=== PATIENT | female | born 1975 | race Caucasian/White ===

== ENCOUNTER 2022-01-08 12:29 | Observation (INO) ==
[2022-01-08 14:06] VITALS: BMI 34.7
[2022-01-08] MEDS ORDERED: ZOFRAN INJ 4 MG VIAL IVP PRN (18:32)
[2022-01-08] MEDS ORDERED: NS 100 ML IV 100 ML ONE (21:26)
[2022-01-08] MEDS: D5 1/2 NS 1,000 ML 1,000 ML IV SCH (21:30)
[2022-01-08] MEDS: ZESTRIL TAB 10 MG PO SCH (21:30)
[2022-01-08] MEDS: DILAUDID INJ IVP PRN (21:40)
[2022-01-08] MEDS: ANCEF VIAL 1 GRAM IV SCH (21:45)
[2022-01-09] MEDS ORDERED: NS 100 ML IV 100 ML ONE ×2 (04:37→14:01)
[2022-01-09] MEDS: ANCEF VIAL 1 GRAM IV SCH ×3 (05:30→21:22)
[2022-01-09 06:40] LABS: BASOPHILS % (AUTO) 0.5 % (0.2-1.0); EOSINOPHILS # (AUTO) 0.2 x10^3/uL (0.0-0.2); EOSINOPHILS % (AUTO) 3.7 % (0.9-2.9); HEMATOCRIT 38.1 % (36.0-47.0); LYMPHOCYTES # (AUTO) 1.7 X10^3/uL (1.3-2.9); LYMPHOCYTES % (AUTO) 32.7 % (21.0-51.0); MEAN CORPUSCULAR HEMOGLOBIN 27.6 pg (27.0-34.0); MEAN CORPUSCULAR HGB CONC 34.2 g/dL (33.0-35.0); MEAN CORPUSCULAR VOLUME 80.7 fL (80.0-100.0); MEAN PLATELET VOLUME 7.5 fL (7.4-11.0); MONOCYTES # (AUTO) 0.3 x10^3/uL (0.3-0.8); MONOCYTES % (AUTO) 5.5 % (0.0-13.0); NEUTROPHILS # (AUTO) 3.1 x10^3/uL (2.2-4.8); NEUTROPHILS % (AUTO) 57.6 % (42.0-75.0); RED BLOOD COUNT 4.72 X10^6/uL (3.5-5.4); RED CELL DISTRIBUTION WIDTH 13.3 % (11.6-16.5); WHITE BLOOD COUNT 5.3 X10^3/uL (3.6-10.0)
[2022-01-09 06:50] LABS: ALANINE AMINOTRANSFERASE 18 Units/L (12-78); ALBUMIN 3.4 g/dL (3.4-5.0); ALKALINE PHOSPHATASE 49 Units/L (46-116); AMYLASE 66 Units/L (25-115); ASPARTATE AMINO TRANSFERASE 20 Units/L (15-37); BLOOD UREA NITROGEN 14 mg/dL (7-18); CALCIUM 8.3 mg/dL (8.5-10.1); CARBON DIOXIDE 27.2 mmol/L (21-32); CHLORIDE 103 mmol/L (98-107); LIPASE 146 Units/L (73-393); SODIUM 138 mmol/L (136-145); TOTAL PROTEIN 6.9 g/dL (6.4-8.2); eGFR NON BLACK RACES 51 (>60)
[2022-01-09] MEDS ORDERED: K-RIDER 10 MEQ/NS 100 ML 10 MEQ/100 ML BAG IV PRN (07:19)
[2022-01-09] MEDS ORDERED: POTASSIUM CHLORIDE LIQ 20 MEQ UDC PO PRN (07:19)
[2022-01-09] MEDS ORDERED: POTASSIUM CHL 40 MEQ/NS 0.45% 500 ML IV PRN (07:19)
[2022-01-09] MEDS ORDERED: MICRO K EXTEN CAP 10 MEQ PO PRN (07:19)
[2022-01-09] MEDS ORDERED: KLOR-CON PO PRN (07:19)
[2022-01-09] MEDS ORDERED: K-DUR TAB 20 MEQ PO PRN (07:19)
[2022-01-09] MEDS ORDERED: POTASSIUM CHL 60 MEQ/NS 0.45% 500 ML IV PRN (07:19)
[2022-01-09] MEDS: PROTONIX INJ 40 MG VIAL IVP SCH (08:05)
[2022-01-09] MEDS: D5 1/2 NS 1,000 ML 1,000 ML IV SCH ×2 (08:05→22:38)
--- NOTE | 2022-01-09 10:04 | DR.PROGNOT ---
Hospital Progress Notes - Progress Note for Day of: Progress Note Date: 01/09/22 - Chief Complaint Chief Complaint: still having RT side abdominal pain . no nausea or vomiting . CBC is normal .. Cret 1.2 with normal BUN . afebrile . - Past Medical Family Social History Past Med/Fam/Surg Hx: No changes since H&P Allergies: Allergies No Known Drug Allergies [NKDA] Allergy (Verified 01/08/22 13:46) - Vital Signs Vital Signs: Temperature 98.6 F Pulse Rate [Radial] 56 Respiratory Rate 20 Blood Pressure [Left Arm] 152/71 O2 Sat by Pulse Oximetry 98 - Physical Exam Oriented: Normal Eyes: Normal Ear: Normal Nose: Normal Throat: Normal Respiratory: Normal Cardiovascular: Normal : Normal GI:Auscultation: Normal GI:Palpation: Normal GI: Tenderness: RUQ (soft abdomen with RUQ tenderness . BS+ ) Speech Pattern: Clear, Appropriate - Laboratory and Diagnostics Result Diagrams: 01/09/22 05:59 01/09/22 05:59 Labs: Laboratory WBC 5.3 X10^3/uL (3.6-10.0) 01/09/22 05:59 RBC 4.72 X10^6/uL (3.5-5.4) 01/09/22 05:59 Hgb 13.0 g/dL (12.0-16.0) 01/09/22 05:59 Hct 38.1 % (36.0-47.0) 01/09/22 05:59 MCV 80.7 fL (80.0-100.0) 01/09/22 05:59 MCH 27.6 pg (27.0-34.0) 01/09/22 05:59 MCHC 34.2 g/dL (33.0-35.0) 01/09/22 05:59 RDW 13.3 % (11.6-16.5) 01/09/22 05:59 Plt Count 254 X10^3/uL (150.0-450.0) 01/09/22 05:59 MPV 7.5 fL (7.4-11.0) 01/09/22 05:59 Neut % (Auto) 57.6 % (42.0-75.0) 01/09/22 05:59 Lymph % (Auto) 32.7 % (21.0-51.0) 01/09/22 05:59 [place] % (Auto) 5.5 % (0.0-13.0) 01/09/22 05:59 Eos % (Auto) 3.7 % (0.9-2.9) H 01/09/22 05:59 Baso % (Auto) 0.5 % (0.2-1.0) 01/09/22 05:59 Neut # (Auto) 3.1 x10^3/uL (2.2-4.8) 01/09/22 05:59 Lymph # (Auto) 1.7 X10^3/uL (1.3-2.9) 01/09/22 05:59 [place] # (Auto) 0.3 x10^3/uL (0.3-0.8) 01/09/22 05:59 Eos # (Auto) 0.2 x10^3/uL (0.0-0.2) 01/09/22 05:59 Baso # (Auto) 0.0 X10^3/uL (0.0-0.1) 01/09/22 05:59 Absolute Nucleated RBC 0.1 /100WBC 01/09/22 05:59 Sodium 138 mmol/L (136-145) 01/09/22 05:59 Corrected Sodium TNP 01/09/22 05:59 Potassium 3.6 mmol/L (3.5-5.1) 01/09/22 05:59 Chloride 103 mmol/L (98-107) 01/09/22 05:59 Carbon Dioxide 27.2 mmol/L (21-32) 01/09/22 05:59 BUN 14 mg/dL (7-18) 01/09/22 05:59 Creatinine 1.20 mg/dL (0.55-1.02) H 01/09/22 05:59 Est GFR (MDRD) Af Amer > 60 (>60) 01/09/22 05:59 Est GFR (MDRD) Non-Af 51 (>60) L 01/09/22 05:59 Glucose 100 mg/dL (65-99) H 01/09/22 05:59 Calcium 8.3 mg/dL (8.5-10.1) L 01/09/22 05:59 Corrected Calcium TNP 01/09/22 05:59 Total Bilirubin 0.40 mg/dL (0.2-1.0) 01/09/22 05:59 AST 20 Units/L (15-37) 01/09/22 05:59 ALT 18 Units/L (12-78) 01/09/22 05:59 Alkaline Phosphatase 49 Units/L (46-116) 01/09/22 05:59 Total Protein 6.9 g/dL (6.4-8.2) 01/09/22 05:59 Albumin 3.4 g/dL (3.4-5.0) 01/09/22 05:59 Globulin 3.5 g/dL (2.5-4.5) 01/09/22 05:59 Albumin/Globulin Ratio 1.0 Ratio (1.1-2.1) L 01/09/22 05:59 Amylase 66 Units/L (25-115) 01/09/22 05:59 Lipase 146 Units/L (73-393) 01/09/22 05:59 SARS-CoV-2 (PCR) Negative (NEGATIVE) 01/08/22 14:02 - Assessment and Plan 2: abdominal pain with cholecystitis . for biliary scan today ..
--- NOTE | 2022-01-09 12:08 | NM ---
Nuclear medicine hepatobiliary scanIndication: Right upper quadrant painCOMPARISONSeptember 2021 ultrasound from outside facility.TECHNIQUE5.6 millicuries of technetium 99 M Choletec given IV per protocol. 8 ounces of Ensure Plus given for ejection fraction.FINDINGSThere is normal activity and uptake of radiotracer by the liver with normal excretion in the common bile duct, gallbladder and small bowel. Ejection fraction is 33 percent by 30 minutesImpression:1. No evidence of acute cholecystitis.2. Borderline diminished ejection fraction. Gallbladder dysfunction cannot be completely excluded.Electronically signed by: DURGA GRANDE (Jan 09, 2022 12:07:26)
[2022-01-09] MEDS ORDERED: LR 1,000 ML IV 0 ML IV ONE (13:44)
[2022-01-09] MEDS ORDERED: D5 LR 1,000 ML 1,000 ML IV ONE (13:45)
[2022-01-09] MEDS ORDERED: DIPRIVAN VIAL 20 ML ONE (13:52)
[2022-01-09] MEDS: ZESTRIL TAB 10 MG PO SCH (20:37)
[2022-01-09] MEDS: DILAUDID INJ IVP PRN (21:42)
[2022-01-09] MEDS: MAALOX or MYLANTA PO PRN (21:42)
[2022-01-10] MEDS: D5 1/2 NS 1,000 ML 1,000 ML IV SCH ×3 (00:43→23:18)
[2022-01-10] MEDS: ANCEF VIAL 1 GRAM IV SCH ×3 (05:24→21:09)
[2022-01-10] MEDS: PROTONIX INJ 40 MG VIAL IVP SCH (08:18)
[2022-01-10] MEDS ORDERED: DIPRIVAN VIAL 20 ML ONE (10:18)
[2022-01-10] MEDS ORDERED: VERSED ONE (10:18)
[2022-01-10] MEDS ORDERED: FENTANYL VIAL INJ 100 mcg ONE (10:18)
[2022-01-10] MEDS ORDERED: BRIDION ONE (10:18)
[2022-01-10] MEDS ORDERED: ZOFRAN INJ 4 MG VIAL ONE (10:19)
[2022-01-10] MEDS ORDERED: OFIRMEV IV 1000 MG VIAL 1,000 MG/100 ML VIAL IV ONE (10:19)
[2022-01-10] MEDS ORDERED: PEPCID 20 MG VIAL ONE (10:19)
[2022-01-10] MEDS ORDERED: TORADOL 30 MG VIAL ONE (10:19)
[2022-01-10] MEDS ORDERED: ZEMURON 100 MG VIAL ONE (10:19)
[2022-01-10] MEDS ORDERED: ANCEF VIAL 1 GRAM ONE (10:49)
[2022-01-10] MEDS ORDERED: NS 100 ML IV 100 ML ONE ×3 (10:49→21:03)
[2022-01-10] MEDS ORDERED: DECADRON INJ ONE (11:29)
[2022-01-10] MEDS ORDERED: EPHEDRINE SULFATE INJ ONE (11:32)
[2022-01-10] MEDS ORDERED: ROBINUL ONE (11:33)
[2022-01-10] MEDS ORDERED: BACTROBAN TOPICAL OINT ONE (12:25)
[2022-01-10] MEDS ORDERED: REGLAN INJ 10 MG VIAL IVP PRN (12:39)
[2022-01-10] MEDS ORDERED: DILAUDID INJ ONE (12:39)
[2022-01-10] MEDS ORDERED: BENADRYL INJ 50 MG VIAL IVP PRN (12:39)
[2022-01-10] MEDS ORDERED: PHENERGAN INJ 25 MG IM PRN (12:39)
[2022-01-10] MEDS ORDERED: ZOFRAN INJ 4 MG VIAL IVP PRN (12:39)
[2022-01-10] MEDS ORDERED: BARHEMSYS INJ IVP PRN (12:39)
[2022-01-10] MEDS: DILAUDID INJ IVP PRN ×3 (12:40→23:37)
[2022-01-10] MEDS: MAALOX or MYLANTA PO PRN (18:18)
[2022-01-10] MEDS: ZESTRIL TAB 10 MG PO SCH (21:09)
[2022-01-11] MEDS ORDERED: NS 100 ML IV 100 ML ONE (05:02)
[2022-01-11] MEDS: ANCEF VIAL 1 GRAM IV SCH (05:10)
[2022-01-11 07:49] LABS: BASOPHILS % (AUTO) 0.8 % (0.2-1.0); EOSINOPHILS # (AUTO) 0.1 x10^3/uL (0.0-0.2); EOSINOPHILS % (AUTO) 1.2 % (0.9-2.9); HEMATOCRIT 32.2 % (36.0-47.0); HEMOGLOBIN 11.2 g/dL (12.0-16.0); LYMPHOCYTES # (AUTO) 1.6 X10^3/uL (1.3-2.9); LYMPHOCYTES % (AUTO) 26.4 % (21.0-51.0); MEAN CORPUSCULAR HGB CONC 34.9 g/dL (33.0-35.0); MEAN CORPUSCULAR VOLUME 80.4 fL (80.0-100.0); MEAN PLATELET VOLUME 7.2 fL (7.4-11.0); MONOCYTES # (AUTO) 0.3 x10^3/uL (0.3-0.8); MONOCYTES % (AUTO) 5.2 % (0.0-13.0); NEUTROPHILS % (AUTO) 66.4 % (42.0-75.0); RED BLOOD COUNT 4.01 X10^6/uL (3.5-5.4); RED CELL DISTRIBUTION WIDTH 13.1 % (11.6-16.5)
[2022-01-11 08:04] LABS: ALANINE AMINOTRANSFERASE 14 Units/L (12-78); ALBUMIN 2.9 g/dL (3.4-5.0); ALKALINE PHOSPHATASE 47 Units/L (46-116); ASPARTATE AMINO TRANSFERASE 25 Units/L (15-37); BLOOD UREA NITROGEN 10 mg/dL (7-18); CALCIUM 7.9 mg/dL (8.5-10.1); CARBON DIOXIDE 26.7 mmol/L (21-32); CHLORIDE 104 mmol/L (98-107); COR CA(FOR HYPOALB) 8.8 mg/dL (8.5-10.1); CREATININE 1.13 mg/dL (0.55-1.02); SODIUM 137 mmol/L (136-145); eGFR NON BLACK RACES 55 (>60)
[2022-01-11] MEDS: PROTONIX INJ 40 MG VIAL IVP SCH (08:31)
[2022-01-11 14:37] VITALS: BP 158/71
== END 2022-01-11 12:50 | disposition home or self-care (01) ==
LOC: MED/SURG
PROVIDERS: ADMIT Surgery; ATTEND Surgery
DX: R10.84 Generalized abdominal pain; K76.89 Other specified diseases of liver; N28.1 Cyst of kidney, acquired; K44.9 Diaphragmatic hernia without obstruction or gangrene; K21.00 Gastro-esophageal reflux disease with esophagitis, without bleeding